=== PATIENT | male | born 1965 | race Caucasian/White ===

== ENCOUNTER 2020-11-13 10:51 | Inpatient (IN) ==
[2020-11-13] MEDS ORDERED: SODIUM CHLORIDE 0.9% 1,000 ML IV STA (11:13)
[2020-11-13] MEDS ORDERED: ONDANSETRON 4 MG/2 ML VIAL IV STA (11:13)
[2020-11-13] MEDS ORDERED: HYDROmorphone 2 MG/1 ML VIAL IV STA (11:13)
[2020-11-13 12:13] LABS: Basophils # 0.1 10*3/uL (0.0-0.2); Basophils % 0.3 % (0.0-0.8); Eosinophils # 0.4 10*3/uL (0.0-0.87); Eosinophils % 2.3 % (0.00-10.9); Hematocrit 51.2 VOL% (42.0-52.0); Immature Granulocytes % 0.6 %; Lymphocytes # 2.1 10*3/uL (1.4-4.0); Lymphocytes % 11.3 % (21.2-54.2); Mean Corpuscular HGB Conc 33.2 GM/DL (32-36); Mean Corpuscular Volume 80.4 FL (87-102); Monocytes % 13.1 % (1.7-12.7); Neutrophils % 72.4 % (38.7-73.9); Platelet Count 288 T/CUMM (130-400); Red Blood Count 6.37 MC/CUMM (3.8-5.5); White Blood Count 18.2 T/CUMM (4-12)
[2020-11-13] MEDS ORDERED: PIPERACILLIN/TAZOBACTAM 3,375 MG in SODIUM CHLORIDE 0.9% 100 ML IV STA (12:27)
[2020-11-13 12:31] LABS: Calcium 9.1 MG/DL (8.5-10.1); Osmolality,Calculated 276.5 MOS/KG (273-304)
[2020-11-13] MEDS ORDERED: ALBUTEROL 2.5 MG/3 ML NEB RESP TX PRN (13:18)
[2020-11-13] MEDS ORDERED: MAGNESIUM SULF RIDER 2 GM in PREMIX 1 EACH IV PRN (13:18)
[2020-11-13] MEDS ORDERED: GLUCAGON 1 MG VIAL IM PRN (13:18)
[2020-11-13] MEDS ORDERED: MAGNESIUM SULF RIDER 4 GM in PREMIX 1 EACH IV PRN (13:18)
[2020-11-13] MEDS ORDERED: DEXTROSE 50% 25 GM/50 ML VIAL IV PRN (13:18)
[2020-11-13 13:50] LABS: Bilirubin,Urine Negative (Negative); Blood, Urine Negative (Negative); Glucose,Urine (UA) Negative (Negative); Ketones,Urine 5 mg/dL (Negative); Mucus,Urine Occasional /LPF (Occasional); Nitrite,Urine Negative (Negative); Protein,Urine Negative; RBC,Urine 2 /HPF (0-4); Urine Appearance CLEAR (Clear); Urine Color Yellow (Yellow); Urine Specific Gravity 1.009 (1.001-1.035); Urine Urobilinogen < 2.0 EU/DL (0.2-1.0); WBC,Urine 1 /HPF (0-6)
[2020-11-13] MEDS ORDERED: ENOXAPARIN 30 MG/0.3 ML SYRINGE SUBCUT SCH (14:00)
[2020-11-13] MEDS: DEXTROSE 5% NACL 0.9% 1,000 ML IV SCH ×2 (15:36→23:42)
[2020-11-13] MEDS: HYDROmorphone 2 MG/1 ML VIAL IV PRN ×2 (15:37→20:16)
[2020-11-13] MEDS: PANTOPRAZOLE 40 MG VIAL IV SCH (16:05)
[2020-11-13] MEDS: ZALEPLON 5 MG CAPSULE PO PRN (20:15)
[2020-11-13] MEDS: BUDESONIDE/FORMOTEROL 160-4.5 INHALER 6 GM INH SCH (20:15)
[2020-11-13] MEDS: AMPICILLIN/SULBACTAM 3,000 MG in SODIUM CHLORIDE 0.9% 100 ML IV SCH (23:42)
[2020-11-14] MEDS: HYDROmorphone 2 MG/1 ML VIAL IV PRN ×4 (00:44→16:44)
[2020-11-14] MEDS: DEXTROSE 5% NACL 0.9% 1,000 ML IV SCH ×2 (01:08→10:02)
[2020-11-14 05:36] LABS: Basophils % 0.2 % (0.0-0.8); Eosinophils # 0.4 10*3/uL (0.0-0.87); Eosinophils % 3.4 % (0.00-10.9); Hemoglobin 14.4 GM/DL (14.0-18.0); Immature Granulocytes % 0.5 %; Immature Granulocytes Absolute 0.07 #; Lymphocytes % 7.8 % (21.2-54.2); Mean Corpuscular HGB Conc 32.7 GM/DL (32-36); Mean Corpuscular Volume 83.8 FL (87-102); Monocytes % 11.1 % (1.7-12.7); Platelet Count 203 T/CUMM (130-400); Red Blood Count 5.25 MC/CUMM (3.8-5.5); Red Cell Distribution Width 17.3 % (9.3-17.3); White Blood Count 12.8 T/CUMM (4-12)
[2020-11-14 06:04] LABS: Calcium 7.7 MG/DL (8.5-10.1)
[2020-11-14] MEDS ORDERED: ACETAMINOPHEN 325 MG TABLET PO PRN (07:49)
[2020-11-14] MEDS: PANTOPRAZOLE 40 MG VIAL IV SCH (08:14)
[2020-11-14] MEDS: AMPICILLIN/SULBACTAM 3,000 MG in SODIUM CHLORIDE 0.9% 100 ML IV SCH (08:22)
[2020-11-14] MEDS: BUDESONIDE/FORMOTEROL 160-4.5 INHALER 6 GM INH SCH ×2 (10:03→20:42)
[2020-11-14] MEDS: PIPERACILLIN/TAZOBACTAM 3,375 MG in SODIUM CHLORIDE 0.9% 100 ML IV SCH ×2 (10:51→17:37)
[2020-11-14] MEDS: ONDANSETRON 4 MG/2 ML VIAL IV PRN (16:45)
[2020-11-14] MEDS: ENOXAPARIN 40 MG/0.4 ML SYRINGE SUBCUT SCH (17:37)
[2020-11-14] MEDS: ZALEPLON 5 MG CAPSULE PO PRN (20:41)
[2020-11-14] MEDS: ALPRAZolam 0.5 MG TABLET PO PRN (20:41)
[2020-11-15] MEDS: DEXTROSE 5% NACL 0.9% 1,000 ML IV SCH ×4 (01:47→18:40)
[2020-11-15] MEDS: PIPERACILLIN/TAZOBACTAM 3,375 MG in SODIUM CHLORIDE 0.9% 100 ML IV SCH ×3 (01:47→22:03)
[2020-11-15 05:16] LABS: Basophils % 0.3 % (0.0-0.8); Eosinophils # 0.6 10*3/uL (0.0-0.87); Eosinophils % 5.8 % (0.00-10.9); Hematocrit 45.1 VOL% (42.0-52.0); Hemoglobin 14.2 GM/DL (14.0-18.0); Immature Granulocytes % 0.5 %; Immature Granulocytes Absolute 0.05 #; Lymphocytes # 1.1 10*3/uL (1.4-4.0); Lymphocytes % 11.4 % (21.2-54.2); Mean Corpuscular HGB Conc 31.5 GM/DL (32-36); Mean Corpuscular Volume 84.8 FL (87-102); Mean Platelet Volume 9.9 FL (9.6-12.0); Monocytes % 10.8 % (1.7-12.7); Neutrophils % 71.2 % (38.7-73.9); Platelet Count 209 T/CUMM (130-400); Red Blood Count 5.32 MC/CUMM (3.8-5.5); White Blood Count 9.5 T/CUMM (4-12)
[2020-11-15 05:48] LABS: Albumin 2.4 G/DL (3.4-5.0); Bilirubin,Direct 0.34 MG/DL (0.0-0.20); Bilirubin,Indirect 1.1 MG/DL (0.0-1.0); Bilirubin,Total 1.4 MG/DL (0.2-1.0); Calcium 8.2 MG/DL (8.5-10.1); Osmolality,Calculated 273.5 MOS/KG (273-304); Potassium 3.6 MMOL/L (3.5-5.1); Total Protein 5.8 G/DL (5.0-7.5)
[2020-11-15] MEDS: ONDANSETRON 4 MG/2 ML VIAL IV PRN (06:09)
[2020-11-15] MEDS: PANTOPRAZOLE 40 MG VIAL IV SCH (08:22)
[2020-11-15] MEDS: PROMETHAZINE 25 MG TABLET PO PRN ×3 (08:22→21:45)
[2020-11-15] MEDS: BUDESONIDE/FORMOTEROL 160-4.5 INHALER 6 GM INH SCH ×2 (08:23→21:45)
[2020-11-15] MEDS ORDERED: LACTULOSE 20 GM/30 ML UDCUP PO PRN (10:06)
[2020-11-15] MEDS: ENOXAPARIN 40 MG/0.4 ML SYRINGE SUBCUT SCH (18:52)
[2020-11-15] MEDS: HYDROmorphone 2 MG/1 ML VIAL IV PRN (23:07)
[2020-11-16] MEDS: ALPRAZolam 0.5 MG TABLET PO PRN ×2 (01:09→21:14)
[2020-11-16] MEDS: PIPERACILLIN/TAZOBACTAM 3,375 MG in SODIUM CHLORIDE 0.9% 100 ML IV SCH ×3 (06:26→21:15)
[2020-11-16] MEDS: PANTOPRAZOLE 40 MG VIAL IV SCH (08:39)
[2020-11-16] MEDS: BUDESONIDE/FORMOTEROL 160-4.5 INHALER 6 GM INH SCH ×2 (13:35→21:16)
[2020-11-16] MEDS: PROMETHAZINE 25 MG TABLET PO PRN (14:32)
[2020-11-16] MEDS: DEXTROSE 5% NACL 0.9% 1,000 ML IV SCH (17:18)
[2020-11-16] MEDS: ENOXAPARIN 40 MG/0.4 ML SYRINGE SUBCUT SCH (17:19)
[2020-11-16] MEDS: ZALEPLON 5 MG CAPSULE PO PRN (21:14)
[2020-11-17] MEDS: DEXTROSE 5% NACL 0.9% 1,000 ML IV SCH ×2 (03:57→04:58)
[2020-11-17] MEDS: PIPERACILLIN/TAZOBACTAM 3,375 MG in SODIUM CHLORIDE 0.9% 100 ML IV SCH (05:01)
[2020-11-17 07:02] VITALS: BP 136/86
[2020-11-17 07:40] LABS: Basophils % 0.3 % (0.0-0.8); Eosinophils # 0.5 10*3/uL (0.0-0.87); Eosinophils % 5.6 % (0.00-10.9); Hematocrit 44.8 VOL% (42.0-52.0); Hemoglobin 14.8 GM/DL (14.0-18.0); Immature Granulocytes % 0.4 %; Immature Granulocytes Absolute 0.04 #; Lymphocytes # 1.5 10*3/uL (1.4-4.0); Lymphocytes % 15.8 % (21.2-54.2); Mean Corpuscular Volume 83.1 FL (87-102); Mean Platelet Volume 9.5 FL (9.6-12.0); Monocytes % 13.1 % (1.7-12.7); Neutrophils % 64.8 % (38.7-73.9); Platelet Count 251 T/CUMM (130-400); Red Blood Count 5.39 MC/CUMM (3.8-5.5); Red Cell Distribution Width 16.5 % (9.3-17.3); White Blood Count 9.3 T/CUMM (4-12)
[2020-11-17] MEDS: PANTOPRAZOLE 40 MG VIAL IV SCH (08:39)
[2020-11-17] MEDS: BUDESONIDE/FORMOTEROL 160-4.5 INHALER 6 GM INH SCH (09:50)
== END 2020-11-17 10:10 | disposition home or self-care (01) | DRG 392 ==
LOC: N.ED 10:51 → N.EDINP 13:18 → N.3E 15:12
PROVIDERS: ADMIT Internal Medicine; ATTEND Internal Medicine

== ENCOUNTER 2022-05-22 09:17 | Inpatient (IN) ==
[2022-05-22] MEDS ORDERED: ALBUTEROL/IPRATROPIUM 3 ML NEB RESP TX STA (09:57)
[2022-05-22] MEDS ORDERED: methylPREDNISolone SOD SUC 125 MG/2 ML VIAL IV STA (09:57)
[2022-05-22] MEDS ORDERED: ALBUTEROL/IPRATROPIUM 3 ML NEB RESP TX ONE (09:57)
[2022-05-22] MEDS ORDERED: ONDANSETRON 4 MG/2 ML VIAL ONE (10:02)
[2022-05-22] MEDS ORDERED: cefTRIAXone 1,000 MG VIAL ONE (10:09)
[2022-05-22] MEDS ORDERED: ALBUTEROL NEB SOLN 5 MG/ML 20 ML/BOTTLE CONT NEB STA (10:16)
[2022-05-22 10:19] LABS: Basophils # 0.1 10*3/uL (0.0-0.2); Basophils % 0.4 % (0.0-0.8); Eosinophils # 0.7 10*3/uL (0.0-0.87); Eosinophils % 3.8 % (0.00-10.9); Hematocrit 50.4 VOL% (42.0-52.0); Hemoglobin 16.9 GM/DL (14.0-18.0); Immature Granulocytes % 3.2 %; Lymphocytes # 1.4 10*3/uL (1.4-4.0); Lymphocytes % 7.5 % (21.2-54.2); Mean Corpuscular HGB Conc 33.5 GM/DL (32-36); Mean Corpuscular Volume 81.8 FL (87-102); Mean Platelet Volume 9.1 FL (9.6-12.0); Monocytes # 1.8 10*3/uL (0.11-0.8); Monocytes % 9.2 % (1.7-12.7); Neutrophils % 75.9 % (38.7-73.9); Platelet Count 218 T/CUMM (130-400); Red Blood Count 6.16 MC/CUMM (3.8-5.5); Red Cell Distribution Width 13.8 % (9.3-17.3)
[2022-05-22] MEDS ORDERED: ONDANSETRON 4 MG/2 ML VIAL IV STA (10:33)
[2022-05-22 10:35] LABS: Albumin 2.4 G/DL (3.4-5.0); Osmolality,Calculated 276.7 MOS/KG (273-304); Potassium 4.8 MMOL/L (3.5-5.1); Total Protein 6.3 G/DL (6.4-8.2)
[2022-05-22] MEDS ORDERED: cefTRIAXone 1,000 MG in SODIUM CHLORIDE 0.9% 100 ML IV STA (10:37)
[2022-05-22 10:40] LABS: Band Neutrophils 1 % (0-10); Eosinophils 6 % (0-10); Lymphocytes 4 % (20-55); Platelet Estimate Adequate; Total Cells Counted 100
[2022-05-22] MEDS ORDERED: hydrALAZINE 20 MG/1 ML VIAL IV PRN (10:44)
[2022-05-22] MEDS ORDERED: GLUCAGON 1 MG VIAL IM PRN (10:44)
[2022-05-22] MEDS ORDERED: ACETAMINOPHEN 325 MG TABLET PO PRN (10:44)
[2022-05-22] MEDS ORDERED: DOCUSATE SODIUM 100 MG CAPSULE PO PRN (10:44)
[2022-05-22] MEDS ORDERED: DEXTROSE 10% 250 ML BAG IV PRN (10:44)
[2022-05-22] MEDS ORDERED: ONDANSETRON 4 MG/2 ML VIAL IV PRN (10:44)
[2022-05-22] MEDS ORDERED: AZITHROMYCIN INJ 500 MG in SODIUM CHLORIDE 0.9% 250 ML IV STA (10:44)
[2022-05-22] MEDS ORDERED: ENOXAPARIN 40 MG/0.4 ML SYRINGE SUBCUT SCH (11:00)
[2022-05-22] MEDS ORDERED: cefTRIAXone 1,000 MG in SODIUM CHLORIDE 0.9% 100 ML IV SCH (11:00)
[2022-05-22] MEDS ORDERED: HYDROcodone/HOMATROPINE 5 ML UDCUP PO PRN (11:09)
[2022-05-22] MEDS ORDERED: IBUPROFEN 800 MG TABLET PO PRN (11:09)
[2022-05-22] MEDS ORDERED: CETIRIZINE 10 MG TABLET PO PRN (11:09)
[2022-05-22] MEDS ORDERED: ZALEPLON 5 MG CAPSULE PO PRN (12:05)
[2022-05-22] MEDS ORDERED: ENOXAPARIN 40 MG/0.4 ML SYRINGE SUBCUT ONE ×2 (13:00→14:55)
[2022-05-22] MEDS ORDERED: ALBUTEROL/IPRATROPIUM 3 ML NEB RESP TX SCH (13:00)
[2022-05-22] MEDS ORDERED: MORPHINE 2 MG/1 ML SYRINGE ONE (13:48)
[2022-05-22] MEDS: methylPREDNISolone SOD SUC 40 MG/1 ML VIAL IV SCH ×2 (14:00→20:22)
[2022-05-22] MEDS: INSULIN LISPRO 100 UNIT/ML SUBCUT SCH ×3 (14:03→20:23)
[2022-05-22] MEDS: ALBUTEROL/IPRATROPIUM 3 ML NEB RESP TX SCH ×3 (14:04→19:37)
[2022-05-22 14:06] VITALS: BP 151/99
[2022-05-22] MEDS: MORPHINE 2 MG/1 ML SYRINGE IV PRN ×3 (14:32→21:29)
[2022-05-22] MEDS: ALPRAZolam 0.5 MG TABLET PO PRN (14:58)
[2022-05-22] MEDS: APIXABAN 5 MG TABLET PO SCH ×2 (14:58→20:24)
[2022-05-22] MEDS: BUDESONIDE/FORMOTEROL 160-4.5 INHALER 6 GM INH SCH ×2 (16:41→20:24)
[2022-05-22] MEDS: MEROPENEM 500 MG in SODIUM CHLORIDE 0.9% 100 ML IV SCH ×2 (16:42→21:28)
[2022-05-22] MEDS ORDERED: ENOXAPARIN 80 MG/0.8 ML SYRINGE SUBCUT SCH (21:00)
[2022-05-23] MEDS: MORPHINE 2 MG/1 ML SYRINGE IV PRN ×2 (00:34→07:53)
[2022-05-23] MEDS: ALBUTEROL/IPRATROPIUM 3 ML NEB RESP TX SCH ×5 (00:41→14:03)
[2022-05-23] MEDS: methylPREDNISolone SOD SUC 40 MG/1 ML VIAL IV SCH ×2 (03:53→12:38)
[2022-05-23] MEDS: MEROPENEM 500 MG in SODIUM CHLORIDE 0.9% 100 ML IV SCH ×2 (03:54→09:54)
[2022-05-23 05:34] LABS: Basophils % 0.2 % (0.0-0.8); Eosinophils % 0.1 % (0.00-10.9); Hematocrit 45.7 VOL% (42.0-52.0); Hemoglobin 14.9 GM/DL (14.0-18.0); Immature Granulocytes % 2.2 %; Immature Granulocytes Absolute 0.42 #; Lymphocytes # 0.6 10*3/uL (1.4-4.0); Mean Corpuscular HGB Conc 32.6 GM/DL (32-36); Mean Corpuscular Volume 83.4 FL (87-102); Mean Platelet Volume 9.5 FL (9.6-12.0); Monocytes # 0.6 10*3/uL (0.11-0.8); Monocytes % 3.2 % (1.7-12.7); Neutrophils % 91.3 % (38.7-73.9); Platelet Count 225 T/CUMM (130-400); Red Blood Count 5.48 MC/CUMM (3.8-5.5); Red Cell Distribution Width 13.7 % (9.3-17.3); White Blood Count 18.9 T/CUMM (4-12)
[2022-05-23 05:52] LABS: Calcium 8.4 MG/DL (8.5-10.1); Osmolality,Calculated 285.7 MOS/KG (273-304); Potassium 4.1 MMOL/L (3.5-5.1)
[2022-05-23 06:00] LABS: Band Neutrophils 2 % (0-10); Lymphocytes 5 % (20-55); Microcytosis Slight; Total Cells Counted 100
[2022-05-23 06:01] LABS: Platelet Estimate Normal
[2022-05-23] MEDS: INSULIN LISPRO 100 UNIT/ML SUBCUT SCH ×2 (07:50→12:37)
[2022-05-23] MEDS: ALPRAZolam 0.5 MG TABLET PO PRN (07:53)
[2022-05-23] MEDS: APIXABAN 5 MG TABLET PO SCH (08:01)
[2022-05-23] MEDS: BUDESONIDE/FORMOTEROL 160-4.5 INHALER 6 GM INH SCH (08:01)
[2022-05-23] MEDS ORDERED: PANTOPRAZOLE 40 MG TABLET PO SCH (09:00)
[2022-05-23] MEDS ORDERED: cefTRIAXone 1,000 MG in SODIUM CHLORIDE 0.9% 100 ML IV SCH (09:00)
[2022-05-23] MEDS ORDERED: AZITHROMYCIN INJ 500 MG in SODIUM CHLORIDE 0.9% 250 ML IV SCH (11:00)
== END 2022-05-23 15:00 | disposition home or self-care (01) | DRG 175 ==
LOC: N.ED 09:17 → N.5E 12:02 → SUATTDRO 12:02 → N.CC 13:15
PROVIDERS: ADMIT Internal Medicine; ATTEND Internal Medicine

== ENCOUNTER 2022-05-24 12:13 | Inpatient (IN) ==
[2022-05-24] MEDS ORDERED: methylPREDNISolone SOD SUC 125 MG/2 ML VIAL IV STA (12:37)
[2022-05-24 12:45] LABS: Basophils # 0.1 10*3/uL (0.0-0.2); Basophils % 0.2 % (0.0-0.8); Eosinophils # 0.1 10*3/uL (0.0-0.87); Eosinophils % 0.4 % (0.00-10.9); Hematocrit 49.2 VOL% (42.0-52.0); Hemoglobin 16.4 GM/DL (14.0-18.0); Immature Granulocytes % 2.2 %; Immature Granulocytes Absolute 0.57 #; Lymphocytes # 1.6 10*3/uL (1.4-4.0); Lymphocytes % 6.2 % (21.2-54.2); Mean Corpuscular HGB Conc 33.3 GM/DL (32-36); Mean Corpuscular Volume 81.7 FL (87-102); Monocytes # 2.4 10*3/uL (0.11-0.8); Monocytes % 9.3 % (1.7-12.7); Neutrophils % 81.7 % (38.7-73.9); Platelet Count 320 T/CUMM (130-400); Red Blood Count 6.02 MC/CUMM (3.8-5.5); Red Cell Distribution Width 14.4 % (9.3-17.3); White Blood Count 25.5 T/CUMM (4-12)
[2022-05-24] MEDS ORDERED: ALBUTEROL NEB SOLN 5 MG/ML 20 ML/BOTTLE CONT NEB SCH (13:00)
[2022-05-24 13:06] LABS: Albumin 2.6 G/DL (3.4-5.0); Bilirubin,Total 0.5 MG/DL (0.20-1.00); Calcium 8.9 MG/DL (8.5-10.1); Osmolality,Calculated 286.3 MOS/KG (273-304); Potassium 4.2 MMOL/L (3.5-5.1); Total Protein 6.6 G/DL (6.4-8.2)
[2022-05-24 13:16] LABS: Lymphocytes 7 % (20-55); Total Cells Counted 100
[2022-05-24] MEDS ORDERED: ONDANSETRON 4 MG/2 ML VIAL ONE ×2 (13:19→19:46)
[2022-05-24 13:22] LABS: Arterial Base Excess iSTAT 4 MMOL/L (-2.5-2.5); Arterial Bicarbonate iSTAT 23.9 MMOL/L (20-26); Arterial O2 Saturation iSTAT 99 % (95-100); Arterial PCO2 iSTAT 25 MM HG (35-48); Arterial PO2 iSTAT 97 MM HG (80-95); Arterial Total CO2 iSTAT 25 MMO/L (23-27); Arterial pH iSTAT 7.596 (7.35-7.45)
[2022-05-24 13:24] LABS: Hypochromia Slight
[2022-05-24] MEDS ORDERED: ONDANSETRON 4 MG/2 ML VIAL IV STA (13:24)
[2022-05-24 13:26] LABS: Platelet Estimate Normal
[2022-05-24] MEDS ORDERED: MEROPENEM 500 MG in SODIUM CHLORIDE 0.9% 100 ML IV ONE (14:07)
[2022-05-24] MEDS ORDERED: HYDROcodone/HOMATROPINE 5 ML UDCUP PO PRN (14:23)
[2022-05-24] MEDS ORDERED: CETIRIZINE 10 MG TABLET PO PRN (14:23)
[2022-05-24] MEDS ORDERED: ALBUTEROL 2.5 MG/3 ML NEB RESP TX PRN (14:35)
[2022-05-24] MEDS ORDERED: methylPREDNISolone SOD SUC 40 MG/1 ML VIAL ONE (15:07)
[2022-05-24] MEDS: FAMOTIDINE 20 MG/2 ML VIAL IV SCH (15:10)
[2022-05-24] MEDS: ALBUTEROL/IPRATROPIUM 3 ML NEB RESP TX SCH ×3 (15:12→23:28)
[2022-05-24] MEDS: IBUPROFEN 400 MG TABLET PO SCH ×2 (15:15→21:11)
[2022-05-24] MEDS: oxyCODONE/ACETAMINOPHEN 5-325 MG TABLET PO PRN ×2 (15:15→21:12)
[2022-05-24] MEDS: ALPRAZolam 0.5 MG TABLET PO PRN ×2 (15:23→21:11)
[2022-05-24] MEDS: SODIUM CHLORIDE 0.9% 1,000 ML IV SCH ×2 (17:10→22:16)
[2022-05-24] MEDS: BUDESONIDE/FORMOTEROL 160-4.5 INHALER 6 GM INH SCH ×2 (18:32→21:14)
[2022-05-24] MEDS: MORPHINE 2 MG/1 ML SYRINGE IV PRN (19:05)
[2022-05-24] MEDS ORDERED: KETOROLAC 30 MG/1 ML VIAL IV ONE (19:11)
[2022-05-24] MEDS ORDERED: TERBUTALINE 1 MG/1 ML VIAL SUBCUT ONE (19:14)
[2022-05-24] MEDS ORDERED: LORazepam 2 MG/1 ML VIAL IV ONE ×2 (19:31→19:46)
[2022-05-24] MEDS ORDERED: ONDANSETRON 4 MG/2 ML VIAL IV ONE (19:47)
[2022-05-24] MEDS ORDERED: methylPREDNISolone SOD SUC 40 MG/1 ML VIAL IV SCH (20:00)
[2022-05-24] MEDS ORDERED: LORazepam 2 MG/1 ML VIAL IV PRN (20:20)
[2022-05-24] MEDS ORDERED: HYDROmorphone 1 MG/1 ML SYRINGE IV PRN (20:20)
[2022-05-24] MEDS ORDERED: SODIUM CHLORIDE 0.9% 500 ML IV ONE (20:23)
[2022-05-24] MEDS: MEROPENEM 500 MG in SODIUM CHLORIDE 0.9% 100 ML IV SCH (20:48)
[2022-05-24 20:56] LABS: Arterial Base Excess iSTAT -7 MMOL/L (-2.5-2.5); Arterial Bicarbonate iSTAT 18.2 MMOL/L (20-26); Arterial O2 Saturation iSTAT 99 % (95-100); Arterial PCO2 iSTAT 35 MM HG (35-48); Arterial PO2 iSTAT 131 MM HG (80-95); Arterial Total CO2 iSTAT 19 MMO/L (23-27); Arterial pH iSTAT 7.325 (7.35-7.45)
[2022-05-24] MEDS: APIXABAN 5 MG TABLET PO SCH (21:11)
[2022-05-25 00:59] LABS: Alanine Aminotransferase 25 U/L (16-61); Alkaline Phosphatase 60 U/L (45-117); Aspartate Amino Transferase 8 U/L (0-37); Bilirubin,Total < 0.39 MG/DL (0.20-1.00); Blood Urea Nitrogen 25 MG/DL (7-18); Calcium 7.9 MG/DL (8.5-10.1); Carbon Dioxide 24 MMOL/L (21-32); Chloride 109 MMOL/L (98-107); Glucose 282 MG/DL (74-106); Osmolality,Calculated 292.4 MOS/KG (273-304); Potassium 4.7 MMOL/L (3.5-5.1); Sodium 140 MMOL/L (136-145)
[2022-05-25] MEDS: FAMOTIDINE 20 MG/2 ML VIAL IV SCH ×2 (02:03→16:30)
[2022-05-25] MEDS: methylPREDNISolone SOD SUC 40 MG/1 ML VIAL IV SCH ×2 (02:03→06:22)
[2022-05-25] MEDS: MEROPENEM 500 MG in SODIUM CHLORIDE 0.9% 100 ML IV SCH ×4 (02:06→20:18)
[2022-05-25] MEDS: IBUPROFEN 400 MG TABLET PO SCH ×2 (02:49→17:37)
[2022-05-25] MEDS: oxyCODONE/ACETAMINOPHEN 5-325 MG TABLET PO PRN (02:49)
[2022-05-25] MEDS: ALBUTEROL/IPRATROPIUM 3 ML NEB RESP TX SCH ×4 (03:28→15:46)
[2022-05-25 04:02] LABS: Basophils % 0.1 % (0.0-0.8); Hematocrit 41.8 VOL% (42.0-52.0); Immature Granulocytes Absolute 0.26 #; Lymphocytes # 0.4 10*3/uL (1.4-4.0); Lymphocytes % 3.4 % (21.2-54.2); Mean Corpuscular HGB Conc 32.1 GM/DL (32-36); Mean Corpuscular Volume 84.8 FL (87-102); Mean Platelet Volume 9.3 FL (9.6-12.0); Monocytes # 0.4 10*3/uL (0.11-0.8); Monocytes % 3.4 % (1.7-12.7); Neutrophils % 91.1 % (38.7-73.9); Red Blood Count 4.93 MC/CUMM (3.8-5.5); Red Cell Distribution Width 14.6 % (9.3-17.3); White Blood Count 13.1 T/CUMM (4-12)
[2022-05-25 04:04] LABS: Hemoglobin 13.4 GM/DL (14.0-18.0); Platelet Count 235 T/CUMM (130-400)
[2022-05-25 04:04] LABS: Arterial Base Excess iSTAT 0 MMOL/L (-2.5-2.5); Arterial Bicarbonate iSTAT 23.3 MMOL/L (20-26); Arterial O2 Saturation iSTAT 99 % (95-100); Arterial PCO2 iSTAT 32 MM HG (35-48); Arterial PO2 iSTAT 147 MM HG (80-95); Arterial Total CO2 iSTAT 24 MMO/L (23-27); Arterial pH iSTAT 7.465 (7.35-7.45)
[2022-05-25 04:26] LABS: Lymphocytes 4 % (20-55); Platelet Estimate Adequate; Total Cells Counted 100
[2022-05-25] MEDS: SODIUM CHLORIDE 0.9% 1,000 ML IV SCH (06:22)
[2022-05-25] MEDS ORDERED: KETOROLAC 30 MG/1 ML VIAL IV ONE (06:25)
[2022-05-25] MEDS: MORPHINE 2 MG/1 ML SYRINGE IV PRN ×2 (06:28→11:45)
[2022-05-25] MEDS ORDERED: TERBUTALINE 1 MG/1 ML VIAL SUBCUT ONE (06:52)
[2022-05-25] MEDS ORDERED: methylPREDNISolone SOD SUC 40 MG/1 ML VIAL IV SCH (09:00)
[2022-05-25] MEDS: AMINOPHYLLINE 500 MG in SODIUM CHLORIDE 0.9% 480 ML IV SCH ×2 (09:30→17:45)
[2022-05-25] MEDS: methylPREDNISolone SOD SUC 125 MG/2 ML VIAL IV SCH ×3 (09:30→20:18)
[2022-05-25] MEDS: APIXABAN 5 MG TABLET PO SCH ×2 (11:10→20:18)
[2022-05-25] MEDS ORDERED: KETOROLAC 10 MG TABLET PO PRN (11:24)
[2022-05-25] MEDS ORDERED: PROMETHAZINE 25 MG TABLET PO PRN (11:24)
[2022-05-25] MEDS ORDERED: METOPROLOL TARTRATE 5 MG/5 ML VIAL IV ONE ×2 (11:45→11:48)
[2022-05-25] MEDS ORDERED: RACEPINEPHRINE 0.5 ML NEB RESP TX STA (11:49)
[2022-05-25] MEDS ORDERED: ETOMIDATE 20 MG/10 ML VIAL IV ONE ×4 (12:01→12:08)
[2022-05-25] MEDS ORDERED: SUCCINYLCHOLINE 200 MG/10 ML VIAL ONE (12:02)
[2022-05-25] MEDS ORDERED: SUCCINYLCHOLINE 200 MG/10 ML VIAL IV ONE (12:08)
[2022-05-25] MEDS ORDERED: HEPARIN/NACL 0.9% 2 UNITS/ML 1,000 UNIT/500 ML BAG IV ONE (12:11)
[2022-05-25] MEDS ORDERED: MIDAZOLAM 2 MG/2 ML VIAL ONE (12:22)
[2022-05-25] MEDS ORDERED: MIDAZOLAM 2 MG/2 ML VIAL IV ONE ×2 (12:26→16:56)
[2022-05-25] MEDS: MIDAZOLAM 100 MG in SODIUM CHLORIDE 0.9% 80 ML IV PRN ×2 (12:50→21:33)
[2022-05-25] MEDS: fentaNYL INJ 1,250 MCG in SODIUM CHLORIDE 0.9% 225 ML IV PRN ×2 (12:50→21:32)
[2022-05-25 13:59] LABS: ABG Base Excess 0.4 MMOL/L (-2.5-2.5); ABG HCO3 24.8 MMOL/L (20-26); ABG Oxygen Saturation 99.7 % (95-100); ABG PCO2 37.1 MM HG (35-48); ABG PH 7.427 (7.35-7.45); ABG TCO2 21.3 MMOL/L (23-27)
[2022-05-25] MEDS: LEVALBUTEROL 1.25 MG/3 ML NEB RESP TX SCH ×3 (15:46→22:40)
[2022-05-25] MEDS: BUDESONIDE/FORMOTEROL 160-4.5 INHALER 6 GM INH SCH ×2 (17:29→20:19)
[2022-05-25 19:24] LABS: Mucus,Urine Occasional /LPF (Occasional); RBC,Urine 6 /HPF (0-4); Squamous Epithelial Cell,Urine Occasional /HPF (0-10); Urine Appearance Clear (Clear); Urine Color Yellow (Yellow)
[2022-05-25 19:25] LABS: Bilirubin,Urine Negative (Negative); Blood, Urine Negative (Negative); Glucose,Urine (UA) 250 mg/dL (Negative); Ketones,Urine Negative (Negative); Nitrite,Urine Negative (Negative); Protein,Urine 30 mg/dL (Negative); Urine Specific Gravity > 1.030 (1.001-1.035); Urine Urobilinogen 0.2 eU/dL (<2.0)
[2022-05-26] MEDS: AMINOPHYLLINE 500 MG in SODIUM CHLORIDE 0.9% 480 ML IV SCH ×7 (00:30→23:34)
[2022-05-26] MEDS ORDERED: NOREPINEPHRINE 8 MG in SODIUM CHLORIDE 0.9% 242 ML IV PRN (01:55)
[2022-05-26] MEDS ORDERED: NOREPINEPHRINE 4 MG/4 ML VIAL IV ONE (01:58)
[2022-05-26] MEDS: FAMOTIDINE 20 MG/2 ML VIAL IV SCH ×2 (02:32→15:44)
[2022-05-26] MEDS: methylPREDNISolone SOD SUC 125 MG/2 ML VIAL IV SCH ×4 (02:33→20:08)
[2022-05-26] MEDS: MEROPENEM 500 MG in SODIUM CHLORIDE 0.9% 100 ML IV SCH ×4 (02:35→19:37)
[2022-05-26] MEDS: LEVALBUTEROL 1.25 MG/3 ML NEB RESP TX SCH ×6 (03:35→23:10)
[2022-05-26 04:04] LABS: ABG Base Excess -2.2 MMOL/L (-2.5-2.5); ABG HCO3 22.6 MMOL/L (20-26); ABG Oxygen Saturation 99.1 % (95-100); ABG PH 7.367 (7.35-7.45)
[2022-05-26 04:08] LABS: Basophils % 0.1 % (0.0-0.8); Hematocrit 42.2 VOL% (42.0-52.0); Hemoglobin 13.1 GM/DL (14.0-18.0); Immature Granulocytes % 2.2 %; Immature Granulocytes Absolute 0.57 #; Lymphocytes # 0.4 10*3/uL (1.4-4.0); Lymphocytes % 1.7 % (21.2-54.2); Mean Corpuscular Volume 86.7 FL (87-102); Mean Platelet Volume 9.4 FL (9.6-12.0); Monocytes # 1.6 10*3/uL (0.11-0.8); Platelet Count 309 T/CUMM (130-400); Red Blood Count 4.87 MC/CUMM (3.8-5.5); Red Cell Distribution Width 14.4 % (9.3-17.3); White Blood Count 25.8 T/CUMM (4-12)
[2022-05-26 04:21] LABS: Calcium 7.8 MG/DL (8.5-10.1); Osmolality,Calculated 298.1 MOS/KG (273-304); Phosphorous 2.4 MG/DL (2.5-4.9)
[2022-05-26] MEDS: fentaNYL INJ 1,250 MCG in SODIUM CHLORIDE 0.9% 225 ML IV PRN ×4 (04:25→21:05)
[2022-05-26 04:30] LABS: Lymphocytes 2 % (20-55); Platelet Estimate Adequate; Total Cells Counted 100
[2022-05-26] MEDS: APIXABAN 5 MG TABLET PO SCH ×2 (08:37→20:08)
[2022-05-26] MEDS: MIDAZOLAM 100 MG in SODIUM CHLORIDE 0.9% 80 ML IV PRN ×2 (09:57→22:36)
[2022-05-26] MEDS: BUDESONIDE/FORMOTEROL 160-4.5 INHALER 6 GM INH SCH ×2 (11:23→20:39)
[2022-05-26] MEDS ORDERED: POTASSIUM PHOSPHATE 30 MMOL in SODIUM CHLORIDE 0.9% 250 ML IV ONE (11:30)
[2022-05-26] MEDS: INSULIN LISPRO 100 UNIT/ML SUBCUT SCH ×3 (12:20→23:56)
[2022-05-27] MEDS: FAMOTIDINE 20 MG/2 ML VIAL IV SCH ×2 (02:33→14:56)
[2022-05-27] MEDS: methylPREDNISolone SOD SUC 125 MG/2 ML VIAL IV SCH ×4 (02:33→20:22)
[2022-05-27] MEDS: MEROPENEM 500 MG in SODIUM CHLORIDE 0.9% 100 ML IV SCH ×2 (02:33→09:02)
[2022-05-27] MEDS: fentaNYL INJ 1,250 MCG in SODIUM CHLORIDE 0.9% 225 ML IV PRN ×4 (02:35→19:25)
[2022-05-27] MEDS: AMINOPHYLLINE 500 MG in SODIUM CHLORIDE 0.9% 480 ML IV SCH ×3 (03:01→12:53)
[2022-05-27] MEDS: LEVALBUTEROL 1.25 MG/3 ML NEB RESP TX SCH ×6 (03:07→23:10)
[2022-05-27 04:19] LABS: Basophils % 0.1 % (0.0-0.8); Hematocrit 39.5 VOL% (42.0-52.0); Hemoglobin 12.4 GM/DL (14.0-18.0); Immature Granulocytes % 2.2 %; Immature Granulocytes Absolute 0.49 #; Lymphocytes # 0.2 10*3/uL (1.4-4.0); Lymphocytes % 1.1 % (21.2-54.2); Mean Corpuscular HGB Conc 31.4 GM/DL (32-36); Mean Corpuscular Volume 87.4 FL (87-102); Mean Platelet Volume 9.5 FL (9.6-12.0); Monocytes # 1.3 10*3/uL (0.11-0.8); Monocytes % 5.7 % (1.7-12.7); Neutrophils % 90.9 % (38.7-73.9); Platelet Count 312 T/CUMM (130-400); Red Blood Count 4.52 MC/CUMM (3.8-5.5); Red Cell Distribution Width 14.3 % (9.3-17.3); White Blood Count 22.6 T/CUMM (4-12)
[2022-05-27 04:20] LABS: ABG Base Excess 0.1 MMOL/L (-2.5-2.5); ABG HCO3 24.5 MMOL/L (20-26); ABG Oxygen Saturation 98.3 % (95-100); ABG PCO2 44.6 MM HG (35-48); ABG PH 7.369 (7.35-7.45); ABG TCO2 22.8 MMOL/L (23-27)
[2022-05-27 04:37] LABS: Hypochromia Slight; Lymphocytes 3 % (20-55); Microcytosis Slight; Platelet Estimate Adequate; Total Cells Counted 100
[2022-05-27 04:58] LABS: Phosphorous 2.5 MG/DL (2.5-4.9)
[2022-05-27 05:00] LABS: Alanine Aminotransferase 30 U/L (16-61); Albumin 1.8 G/DL (3.4-5.0); Alkaline Phosphatase 55 U/L (45-117); Aspartate Amino Transferase 6 U/L (0-37); Bilirubin,Total < 0.39 MG/DL (0.20-1.00); Blood Urea Nitrogen 24 MG/DL (7-18); Calcium 7.9 MG/DL (8.5-10.1); Carbon Dioxide 24 MMOL/L (21-32); Chloride 114 MMOL/L (98-107); Glucose 276 MG/DL (74-106); Osmolality,Calculated 296.1 MOS/KG (273-304); Potassium 4.3 MMOL/L (3.5-5.1); Sodium 142 MMOL/L (136-145); Total Protein 4.8 G/DL (6.4-8.2)
[2022-05-27] MEDS: INSULIN LISPRO 100 UNIT/ML SUBCUT SCH ×3 (05:40→17:52)
[2022-05-27] MEDS: INSULIN GLARGINE 100 UNIT/ML SUBCUT SCH (09:13)
[2022-05-27] MEDS: APIXABAN 5 MG TABLET PO SCH ×2 (09:13→20:21)
[2022-05-27] MEDS: cefTRIAXone 1,000 MG in SODIUM CHLORIDE 0.9% 100 ML IV SCH (09:18)
[2022-05-27] MEDS: BUDESONIDE/FORMOTEROL 160-4.5 INHALER 6 GM INH SCH (09:44)
[2022-05-27] MEDS: AZITHROMYCIN INJ 500 MG in SODIUM CHLORIDE 0.9% 250 ML IV SCH (10:54)
[2022-05-27] MEDS: MIDAZOLAM 100 MG in SODIUM CHLORIDE 0.9% 80 ML IV PRN (12:06)
[2022-05-27] MEDS: BUDESONIDE 0.5 MG/2 ML NEB RESP TX SCH (19:10)
[2022-05-28] MEDS: INSULIN LISPRO 100 UNIT/ML SUBCUT SCH ×4 (00:18→17:34)
[2022-05-28] MEDS: AMINOPHYLLINE 500 MG in SODIUM CHLORIDE 0.9% 480 ML IV SCH ×2 (00:55→12:23)
[2022-05-28] MEDS: MIDAZOLAM 100 MG in SODIUM CHLORIDE 0.9% 80 ML IV PRN ×2 (01:15→15:15)
[2022-05-28] MEDS: fentaNYL INJ 1,250 MCG in SODIUM CHLORIDE 0.9% 225 ML IV PRN ×5 (01:44→23:45)
[2022-05-28] MEDS: LEVALBUTEROL 1.25 MG/3 ML NEB RESP TX SCH ×6 (02:33→23:10)
[2022-05-28] MEDS: methylPREDNISolone SOD SUC 125 MG/2 ML VIAL IV SCH ×4 (03:19→20:34)
[2022-05-28] MEDS: FAMOTIDINE 20 MG/2 ML VIAL IV SCH ×2 (03:19→15:41)
[2022-05-28 04:10] LABS: Basophils % 0.2 % (0.0-0.8); Hematocrit 36.1 VOL% (42.0-52.0); Hemoglobin 11.4 GM/DL (14.0-18.0); Immature Granulocytes Absolute 0.26 #; Lymphocytes # 0.3 10*3/uL (1.4-4.0); Mean Corpuscular HGB Conc 31.6 GM/DL (32-36); Mean Platelet Volume 9.4 FL (9.6-12.0); Monocytes # 0.6 10*3/uL (0.11-0.8); Monocytes % 4.6 % (1.7-12.7); Neutrophils % 91.2 % (38.7-73.9); Platelet Count 215 T/CUMM (130-400); Red Blood Count 4.15 MC/CUMM (3.8-5.5); Red Cell Distribution Width 14.4 % (9.3-17.3); White Blood Count 13.1 T/CUMM (4-12)
[2022-05-28 04:28] LABS: Alanine Aminotransferase 24 U/L (16-61); Albumin 1.9 G/DL (3.4-5.0); Alkaline Phosphatase 51 U/L (45-117); Aspartate Amino Transferase 4 U/L (0-37); Bilirubin,Total < 0.39 MG/DL (0.20-1.00); Blood Urea Nitrogen 32 MG/DL (7-18); Calcium 8.3 MG/DL (8.5-10.1); Carbon Dioxide 30 MMOL/L (21-32); Chloride 113 MMOL/L (98-107); Glucose 193 MG/DL (74-106); Osmolality,Calculated 301.6 MOS/KG (273-304); Potassium 4.4 MMOL/L (3.5-5.1); Sodium 146 MMOL/L (136-145); Total Protein 4.5 G/DL (6.4-8.2)
[2022-05-28 04:29] LABS: Lymphocytes 2 % (20-55); Platelet Estimate Adequate; Total Cells Counted 100
[2022-05-28 04:32] LABS: Osmolality,Calculated 299.7 MOS/KG (273-304); Potassium 4.4 MMOL/L (3.5-5.1)
[2022-05-28] MEDS: BUDESONIDE 0.5 MG/2 ML NEB RESP TX SCH ×2 (07:50→19:11)
[2022-05-28] MEDS: INSULIN GLARGINE 100 UNIT/ML SUBCUT SCH (08:59)
[2022-05-28] MEDS: APIXABAN 5 MG TABLET PO SCH ×2 (09:00→20:34)
[2022-05-28] MEDS: cefTRIAXone 1,000 MG in SODIUM CHLORIDE 0.9% 100 ML IV SCH (09:02)
[2022-05-28] MEDS: AZITHROMYCIN INJ 500 MG in SODIUM CHLORIDE 0.9% 250 ML IV SCH (10:01)
[2022-05-28 11:27] LABS: ABG Base Excess 1.1 MMOL/L (-2.5-2.5); ABG HCO3 25.4 MMOL/L (20-26); ABG PCO2 51.8 MM HG (35-48); ABG PH 7.338 (7.35-7.45); ABG TCO2 24.8 MMOL/L (23-27)
[2022-05-29] MEDS: AMINOPHYLLINE 500 MG in SODIUM CHLORIDE 0.9% 480 ML IV SCH ×3 (00:12→23:01)
[2022-05-29] MEDS: INSULIN LISPRO 100 UNIT/ML SUBCUT SCH ×4 (00:49→18:16)
[2022-05-29] MEDS: FAMOTIDINE 20 MG/2 ML VIAL IV SCH ×2 (02:34→14:30)
[2022-05-29] MEDS: methylPREDNISolone SOD SUC 125 MG/2 ML VIAL IV SCH ×4 (02:39→21:18)
[2022-05-29 04:28] LABS: ABG Base Excess 3.2 MMOL/L (-2.5-2.5); ABG HCO3 27.3 MMOL/L (20-26); ABG Oxygen Saturation 97.2 % (95-100); ABG PCO2 52.7 MM HG (35-48); ABG PO2 93.3 MM HG (80-95); ABG TCO2 26.7 MMOL/L (23-27)
[2022-05-29 04:29] LABS: Basophils % 0.1 % (0.0-0.8); Hematocrit 35.9 VOL% (42.0-52.0); Hemoglobin 11.1 GM/DL (14.0-18.0); Immature Granulocytes % 2.7 %; Immature Granulocytes Absolute 0.35 #; Lymphocytes # 0.1 10*3/uL (1.4-4.0); Mean Corpuscular HGB Conc 30.9 GM/DL (32-36); Mean Corpuscular Volume 88.2 FL (87-102); Mean Platelet Volume 9.4 FL (9.6-12.0); Monocytes # 0.7 10*3/uL (0.11-0.8); Monocytes % 5.3 % (1.7-12.7); NRBC # 0.03 10*3/uL; Neutrophils % 90.9 % (38.7-73.9); Platelet Count 216 T/CUMM (130-400); Red Blood Count 4.07 MC/CUMM (3.8-5.5); Red Cell Distribution Width 14.4 % (9.3-17.3)
[2022-05-29 04:46] LABS: Calcium 7.9 MG/DL (8.5-10.1)
[2022-05-29 04:53] LABS: Hypochromia Slight; Lymphocytes 1 % (20-55); Microcytosis Slight; Platelet Estimate Adequate; Total Cells Counted 100
[2022-05-29] MEDS: MIDAZOLAM 100 MG in SODIUM CHLORIDE 0.9% 80 ML IV PRN ×2 (05:05→18:18)
[2022-05-29] MEDS: fentaNYL INJ 1,250 MCG in SODIUM CHLORIDE 0.9% 225 ML IV PRN ×3 (06:03→20:46)
[2022-05-29] MEDS: LEVALBUTEROL 1.25 MG/3 ML NEB RESP TX SCH ×5 (07:11→19:38)
[2022-05-29] MEDS: BUDESONIDE 0.5 MG/2 ML NEB RESP TX SCH ×2 (07:11→19:38)
[2022-05-29] MEDS: cefTRIAXone 1,000 MG in SODIUM CHLORIDE 0.9% 100 ML IV SCH (08:30)
[2022-05-29] MEDS: APIXABAN 5 MG TABLET PO SCH (08:37)
[2022-05-29] MEDS: INSULIN GLARGINE 100 UNIT/ML SUBCUT SCH ×2 (08:38→21:23)
[2022-05-29] MEDS: ALPRAZolam 0.5 MG TABLET PO PRN (08:38)
[2022-05-29] MEDS: AZITHROMYCIN INJ 500 MG in SODIUM CHLORIDE 0.9% 250 ML IV SCH (09:30)
[2022-05-29] MEDS ORDERED: FUROSEMIDE 40 MG/4 ML VIAL ONE (09:59)
[2022-05-29] MEDS ORDERED: FUROSEMIDE 40 MG/4 ML VIAL IV ONE (10:00)
[2022-05-29] MEDS ORDERED: APIXABAN 5 MG TABLET PO ONE (21:00)
[2022-05-29] MEDS ORDERED: APIXABAN 5 MG TABLET PO SCH (21:00)
[2022-05-29] MEDS: ALPRAZolam 0.5 MG TABLET PO SCH (21:24)
[2022-05-30] MEDS: INSULIN LISPRO 100 UNIT/ML SUBCUT SCH ×4 (00:15→17:30)
[2022-05-30] MEDS: ACETAMINOPHEN 325 MG/10.15 ML UDCUP PO PRN (00:21)
[2022-05-30] MEDS: LEVALBUTEROL 1.25 MG/3 ML NEB RESP TX SCH ×7 (00:38→23:36)
[2022-05-30] MEDS: FAMOTIDINE 20 MG/2 ML VIAL IV SCH ×2 (02:10→15:02)
[2022-05-30] MEDS: methylPREDNISolone SOD SUC 125 MG/2 ML VIAL IV SCH ×4 (03:52→20:36)
[2022-05-30 04:17] LABS: ABG Base Excess 7.8 MMOL/L (-2.5-2.5); ABG HCO3 31.5 MMOL/L (20-26); ABG Oxygen Saturation 97.7 % (95-100); ABG PCO2 50.4 MM HG (35-48); ABG PO2 96.2 MM HG (80-95); ABG TCO2 29.9 MMOL/L (23-27)
[2022-05-30 04:20] LABS: Basophils % 0.2 % (0.0-0.8); Hematocrit 35.5 VOL% (42.0-52.0); Hemoglobin 10.9 GM/DL (14.0-18.0); Immature Granulocytes % 5.1 %; Immature Granulocytes Absolute 0.61 #; Lymphocytes # 0.2 10*3/uL (1.4-4.0); Lymphocytes % 1.7 % (21.2-54.2); Mean Corpuscular HGB Conc 30.7 GM/DL (32-36); Mean Corpuscular Volume 88.3 FL (87-102); Mean Platelet Volume 9.6 FL (9.6-12.0); Monocytes # 0.8 10*3/uL (0.11-0.8); Monocytes % 6.3 % (1.7-12.7); NRBC # 0.02 10*3/uL; Neutrophils % 86.7 % (38.7-73.9); Platelet Count 200 T/CUMM (130-400); Red Blood Count 4.02 MC/CUMM (3.8-5.5); Red Cell Distribution Width 14.6 % (9.3-17.3)
[2022-05-30 04:44] LABS: Calcium 7.8 MG/DL (8.5-10.1); Osmolality,Calculated 304.7 MOS/KG (273-304); Potassium 4.2 MMOL/L (3.5-5.1)
[2022-05-30 04:50] LABS: Hypochromia Slight; Lymphocytes 2 % (20-55); Microcytosis Slight; Nucleated Red Blood Cells 1 /100 WBC (0-5); Platelet Estimate Adequate; Total Cells Counted 100
[2022-05-30 05:03] LABS: Phosphorous 3.1 MG/DL (2.5-4.9)
[2022-05-30] MEDS: MIDAZOLAM 100 MG in SODIUM CHLORIDE 0.9% 80 ML IV PRN ×2 (06:52→20:38)
[2022-05-30] MEDS: BUDESONIDE 0.5 MG/2 ML NEB RESP TX SCH ×2 (07:53→19:02)
[2022-05-30] MEDS ORDERED: FUROSEMIDE 40 MG/4 ML VIAL IV ONE (08:29)
[2022-05-30] MEDS ORDERED: APIXABAN 5 MG TABLET PO SCH (09:00)
[2022-05-30] MEDS ORDERED: INSULIN GLARGINE 100 UNIT/ML SUBCUT SCH (09:00)
[2022-05-30] MEDS: DILTIAZEM 30 MG TABLET PO SCH ×3 (10:09→20:35)
[2022-05-30] MEDS: ALPRAZolam 0.5 MG TABLET PO SCH (10:09)
[2022-05-30] MEDS: cefTRIAXone 1,000 MG in SODIUM CHLORIDE 0.9% 100 ML IV SCH (10:10)
[2022-05-30] MEDS: APIXABAN 5 MG TABLET PO SCH ×2 (10:10→20:35)
[2022-05-30] MEDS: AZITHROMYCIN INJ 500 MG in SODIUM CHLORIDE 0.9% 250 ML IV SCH (10:12)
[2022-05-30] MEDS: AMINOPHYLLINE 500 MG in SODIUM CHLORIDE 0.9% 480 ML IV SCH ×2 (10:30→23:05)
[2022-05-30] MEDS: fentaNYL INJ 1,250 MCG in SODIUM CHLORIDE 0.9% 225 ML IV PRN (11:40)
[2022-05-30] MEDS: SPIRONOLACTONE 25 MG TABLET PO SCH ×2 (13:01→20:35)
[2022-05-30] MEDS: chlordiazePOXIDE 25 MG CAPSULE PO SCH ×2 (14:40→21:00)
[2022-05-30] MEDS ORDERED: LACTULOSE 20 GM/30 ML UDCUP PO PRN (18:25)
[2022-05-30] MEDS ORDERED: LACTULOSE 20 GM/30 ML UDCUP PO ONE (18:25)
[2022-05-30] MEDS: INSULIN GLARGINE 100 UNIT/ML SUBCUT SCH (20:35)
[2022-05-30] MEDS: POLYETHYLENE GLYCOL POWDER 17 GM PACK PO SCH (20:35)
[2022-05-31] MEDS: INSULIN LISPRO 100 UNIT/ML SUBCUT SCH ×5 (00:14→23:26)
[2022-05-31] MEDS: hydrALAZINE 20 MG/1 ML VIAL IV PRN ×2 (00:50→21:42)
[2022-05-31] MEDS: fentaNYL INJ 1,250 MCG in SODIUM CHLORIDE 0.9% 225 ML IV PRN (01:30)
[2022-05-31] MEDS ORDERED: HEPARIN/NACL 0.9% 2 UNITS/ML 1,000 UNIT/500 ML BAG IV ONE (03:09)
[2022-05-31] MEDS: FAMOTIDINE 20 MG/2 ML VIAL IV SCH ×2 (03:20→14:19)
[2022-05-31] MEDS: methylPREDNISolone SOD SUC 125 MG/2 ML VIAL IV SCH ×2 (03:25→08:28)
[2022-05-31 03:41] LABS: Basophils % 0.1 % (0.0-0.8); Hematocrit 38.1 VOL% (42.0-52.0); Immature Granulocytes % 4.3 %; Lymphocytes # 0.2 10*3/uL (1.4-4.0); Lymphocytes % 1.4 % (21.2-54.2); Mean Corpuscular HGB Conc 31.5 GM/DL (32-36); Mean Corpuscular Volume 87.6 FL (87-102); Mean Platelet Volume 9.7 FL (9.6-12.0); Monocytes # 0.5 10*3/uL (0.11-0.8); Monocytes % 4.6 % (1.7-12.7); NRBC # 0.03 10*3/uL; Neutrophils % 89.6 % (38.7-73.9); Platelet Count 214 T/CUMM (130-400); Red Blood Count 4.35 MC/CUMM (3.8-5.5); Red Cell Distribution Width 14.6 % (9.3-17.3); White Blood Count 11.7 T/CUMM (4-12)
[2022-05-31 03:43] LABS: ABG Base Excess 9.1 MMOL/L (-2.5-2.5); ABG HCO3 32.8 MMOL/L (20-26); ABG Oxygen Saturation 98.5 % (95-100); ABG PCO2 51.2 MM HG (35-48); ABG PH 7.441 (7.35-7.45); ABG TCO2 30.8 MMOL/L (23-27)
[2022-05-31] MEDS: LEVALBUTEROL 1.25 MG/3 ML NEB RESP TX SCH ×6 (03:50→23:11)
[2022-05-31 03:55] LABS: Osmolality,Calculated 307.6 MOS/KG (273-304); Potassium 4.2 MMOL/L (3.5-5.1)
[2022-05-31 04:02] LABS: Eosinophils 1 % (0-10); Hypochromia Slight; Lymphocytes 3 % (20-55); Total Cells Counted 100
[2022-05-31 04:03] LABS: Microcytosis Slight
[2022-05-31] MEDS: chlordiazePOXIDE 25 MG CAPSULE PO SCH ×3 (05:12→21:46)
[2022-05-31] MEDS: BUDESONIDE 0.5 MG/2 ML NEB RESP TX SCH ×2 (07:00→19:23)
[2022-05-31] MEDS: DILTIAZEM 30 MG TABLET PO SCH ×3 (08:27→20:31)
[2022-05-31] MEDS: cefTRIAXone 1,000 MG in SODIUM CHLORIDE 0.9% 100 ML IV SCH (08:28)
[2022-05-31] MEDS: APIXABAN 5 MG TABLET PO SCH ×2 (08:28→20:31)
[2022-05-31] MEDS: SPIRONOLACTONE 25 MG TABLET PO SCH (08:28)
[2022-05-31] MEDS: POLYETHYLENE GLYCOL POWDER 17 GM PACK PO SCH (08:28)
[2022-05-31] MEDS: INSULIN GLARGINE 100 UNIT/ML SUBCUT SCH ×2 (08:28→20:28)
[2022-05-31] MEDS: AMINOPHYLLINE 500 MG in SODIUM CHLORIDE 0.9% 480 ML IV SCH ×2 (08:29→19:47)
[2022-05-31] MEDS: AZITHROMYCIN INJ 500 MG in SODIUM CHLORIDE 0.9% 250 ML IV SCH (09:00)
[2022-05-31] MEDS ORDERED: FUROSEMIDE 40 MG/4 ML VIAL IV ONE (09:21)
[2022-05-31] MEDS: methylPREDNISolone SOD SUC 40 MG/1 ML VIAL IV SCH ×3 (09:21→20:26)
[2022-05-31] MEDS: MIDAZOLAM 100 MG in SODIUM CHLORIDE 0.9% 80 ML IV PRN (09:22)
[2022-05-31] MEDS: ACETAMINOPHEN 325 MG/10.15 ML UDCUP PO PRN (17:26)
[2022-05-31] MEDS: MORPHINE 2 MG/1 ML SYRINGE IV PRN (23:50)
[2022-06-01] MEDS: LEVALBUTEROL 1.25 MG/3 ML NEB RESP TX SCH ×6 (03:16→23:04)
[2022-06-01] MEDS: methylPREDNISolone SOD SUC 40 MG/1 ML VIAL IV SCH ×4 (03:34→20:15)
[2022-06-01] MEDS: FAMOTIDINE 20 MG/2 ML VIAL IV SCH ×2 (03:34→15:34)
[2022-06-01 03:51] LABS: ABG Base Excess 11.6 MMOL/L (-2.5-2.5); ABG HCO3 35.4 MMOL/L (20-26); ABG Oxygen Saturation 98.8 % (95-100); ABG PH 7.515 (7.35-7.45); ABG TCO2 31.1 MMOL/L (23-27)
[2022-06-01 04:12] LABS: Calcium 8.5 MG/DL (8.5-10.1); Osmolality,Calculated 312.1 MOS/KG (273-304); Potassium 4.1 MMOL/L (3.5-5.1)
[2022-06-01 04:13] LABS: Basophils % 0.2 % (0.0-0.8); Hematocrit 42.2 VOL% (42.0-52.0); Hemoglobin 13.3 GM/DL (14.0-18.0); Immature Granulocytes % 5.4 %; Immature Granulocytes Absolute 0.73 #; Lymphocytes # 0.2 10*3/uL (1.4-4.0); Lymphocytes % 1.2 % (21.2-54.2); Mean Corpuscular HGB Conc 31.5 GM/DL (32-36); Mean Corpuscular Volume 86.3 FL (87-102); Monocytes % 7.6 % (1.7-12.7); NRBC # 0.02 10*3/uL; Neutrophils % 85.6 % (38.7-73.9); Platelet Count 215 T/CUMM (130-400); Red Blood Count 4.89 MC/CUMM (3.8-5.5); White Blood Count 13.6 T/CUMM (4-12)
[2022-06-01 04:51] LABS: Lymphocytes 10 % (20-55); Platelet Estimate Normal; Total Cells Counted 100
[2022-06-01] MEDS: chlordiazePOXIDE 25 MG CAPSULE PO SCH (06:06)
[2022-06-01] MEDS: INSULIN LISPRO 100 UNIT/ML SUBCUT SCH ×4 (06:06→23:43)
[2022-06-01] MEDS: AMINOPHYLLINE 500 MG in SODIUM CHLORIDE 0.9% 480 ML IV SCH ×3 (06:48→18:33)
[2022-06-01] MEDS: BUDESONIDE 0.5 MG/2 ML NEB RESP TX SCH ×2 (07:14→19:33)
[2022-06-01] MEDS ORDERED: SPIRONOLACTONE 25 MG TABLET PO SCH (09:00)
[2022-06-01] MEDS ORDERED: LORazepam 2 MG/1 ML VIAL IV PRN (09:22)
[2022-06-01] MEDS: APIXABAN 5 MG TABLET PO SCH ×2 (09:56→20:15)
[2022-06-01] MEDS: DILTIAZEM 60 MG TABLET PO SCH ×3 (09:56→20:15)
[2022-06-01] MEDS: chlordiazePOXIDE 25 MG CAPSULE PO PRN ×2 (09:56→23:40)
[2022-06-01] MEDS: POLYETHYLENE GLYCOL POWDER 17 GM PACK PO SCH (09:56)
[2022-06-01] MEDS: cefTRIAXone 1,000 MG in SODIUM CHLORIDE 0.9% 100 ML IV SCH (10:00)
[2022-06-01] MEDS: INSULIN GLARGINE 100 UNIT/ML SUBCUT SCH ×2 (10:09→20:15)
[2022-06-01] MEDS: AZITHROMYCIN INJ 500 MG in SODIUM CHLORIDE 0.9% 250 ML IV SCH (10:21)
[2022-06-01] MEDS: hydrALAZINE 20 MG/1 ML VIAL IV PRN ×2 (11:44→18:48)
[2022-06-01] MEDS ORDERED: LORazepam 1 MG TABLET ONE (12:01)
[2022-06-01] MEDS: LORazepam 1 MG TABLET PO PRN (12:05)
[2022-06-01] MEDS ORDERED: METOPROLOL TARTRATE 5 MG/5 ML VIAL IV ONE (12:31)
[2022-06-01] MEDS: fentaNYL 25 MCG/HR PATCH TRANSDERM SCH (12:40)
[2022-06-01] MEDS: MIDAZOLAM 100 MG in SODIUM CHLORIDE 0.9% 80 ML IV PRN (23:28)
[2022-06-02] MEDS: LEVALBUTEROL 1.25 MG/3 ML NEB RESP TX SCH ×6 (02:52→23:03)
[2022-06-02] MEDS: FAMOTIDINE 20 MG/2 ML VIAL IV SCH ×2 (03:31→14:02)
[2022-06-02] MEDS: methylPREDNISolone SOD SUC 40 MG/1 ML VIAL IV SCH ×2 (03:32→14:02)
[2022-06-02 03:48] LABS: ABG Base Excess 2.4 MMOL/L (-2.5-2.5); ABG HCO3 26.6 MMOL/L (20-26); ABG Oxygen Saturation 98.9 % (95-100); ABG PCO2 39.1 MM HG (35-48); ABG TCO2 23.2 MMOL/L (23-27)
[2022-06-02 03:52] LABS: Basophils % 0.1 % (0.0-0.8); Hematocrit 40.9 VOL% (42.0-52.0); Hemoglobin 12.5 GM/DL (14.0-18.0); Immature Granulocytes % 3.8 %; Immature Granulocytes Absolute 0.27 #; Lymphocytes # 0.1 10*3/uL (1.4-4.0); Lymphocytes % 1.3 % (21.2-54.2); Mean Corpuscular HGB Conc 30.6 GM/DL (32-36); Mean Corpuscular Volume 88.9 FL (87-102); Mean Platelet Volume 10.3 FL (9.6-12.0); Monocytes # 0.8 10*3/uL (0.11-0.8); Monocytes % 10.7 % (1.7-12.7); Neutrophils % 84.1 % (38.7-73.9); Platelet Count 160 T/CUMM (130-400); Red Cell Distribution Width 15.8 % (9.3-17.3); White Blood Count 7.1 T/CUMM (4-12)
[2022-06-02 04:09] LABS: Calcium 8.3 MG/DL (8.5-10.1); Osmolality,Calculated 321.6 MOS/KG (273-304); Potassium 3.7 MMOL/L (3.5-5.1)
[2022-06-02 04:20] LABS: Lymphocytes 2 % (20-55); Total Cells Counted 100
[2022-06-02 04:21] LABS: Platelet Estimate Adequate
[2022-06-02] MEDS: AMINOPHYLLINE 500 MG in SODIUM CHLORIDE 0.9% 480 ML IV SCH ×3 (06:36→18:59)
[2022-06-02] MEDS: INSULIN LISPRO 100 UNIT/ML SUBCUT SCH ×3 (06:49→17:19)
[2022-06-02] MEDS: BUDESONIDE 0.5 MG/2 ML NEB RESP TX SCH ×2 (07:20→18:55)
[2022-06-02] MEDS: MORPHINE 2 MG/1 ML SYRINGE IV PRN (07:40)
[2022-06-02] MEDS: chlordiazePOXIDE 25 MG CAPSULE PO PRN (09:30)
[2022-06-02] MEDS: INSULIN GLARGINE 100 UNIT/ML SUBCUT SCH (09:30)
[2022-06-02] MEDS: POTASSIUM CHLORIDE 20 MEQ TABLET PO PRN (09:30)
[2022-06-02] MEDS: POLYETHYLENE GLYCOL POWDER 17 GM PACK PO SCH (09:30)
[2022-06-02] MEDS: DILTIAZEM 60 MG TABLET PO SCH ×3 (09:30→20:22)
[2022-06-02] MEDS: APIXABAN 5 MG TABLET PO SCH ×2 (09:30→20:21)
[2022-06-02] MEDS: cefTRIAXone 1,000 MG in SODIUM CHLORIDE 0.9% 100 ML IV SCH (09:34)
[2022-06-02 10:44] LABS: ABG Base Excess 2.2 MMOL/L (-2.5-2.5); ABG HCO3 26.4 MMOL/L (20-26); ABG Oxygen Saturation 98.8 % (95-100); ABG PCO2 37.9 MM HG (35-48); ABG PH 7.447 (7.35-7.45); ABG TCO2 22.4 MMOL/L (23-27)
[2022-06-02] MEDS ORDERED: methylPREDNISolone SOD SUC 40 MG/1 ML VIAL ONE (13:57)
[2022-06-02] MEDS: hydrALAZINE 20 MG/1 ML VIAL IV PRN (16:22)
[2022-06-02] MEDS ORDERED: DEXTROSE 50% 25 GM/50 ML SYRINGE IV PRN (17:19)
[2022-06-02] MEDS ORDERED: DEXTROSE 50% 25 GM/50 ML SYRINGE IV ONE (17:20)
[2022-06-03] MEDS: INSULIN LISPRO 100 UNIT/ML SUBCUT SCH ×5 (00:11→19:59)
[2022-06-03] MEDS: FAMOTIDINE 20 MG/2 ML VIAL IV SCH ×2 (02:46→16:30)
[2022-06-03] MEDS: methylPREDNISolone SOD SUC 40 MG/1 ML VIAL IV SCH ×2 (02:56→16:30)
[2022-06-03] MEDS: AMINOPHYLLINE 500 MG in SODIUM CHLORIDE 0.9% 480 ML IV SCH ×2 (03:01→06:27)
[2022-06-03] MEDS: LEVALBUTEROL 1.25 MG/3 ML NEB RESP TX SCH ×4 (03:09→23:39)
[2022-06-03 04:02] LABS: Basophils % 0.2 % (0.0-0.8); Hematocrit 43.9 VOL% (42.0-52.0); Hemoglobin 13.8 GM/DL (14.0-18.0); Immature Granulocytes % 2.1 %; Immature Granulocytes Absolute 0.21 #; Lymphocytes # 0.2 10*3/uL (1.4-4.0); Lymphocytes % 1.8 % (21.2-54.2); Mean Corpuscular HGB Conc 31.4 GM/DL (32-36); Mean Corpuscular Volume 86.2 FL (87-102); Mean Platelet Volume 9.9 FL (9.6-12.0); Monocytes # 1.4 10*3/uL (0.11-0.8); Monocytes % 14.3 % (1.7-12.7); Neutrophils % 81.6 % (38.7-73.9); Platelet Count 145 T/CUMM (130-400); Red Blood Count 5.09 MC/CUMM (3.8-5.5); Red Cell Distribution Width 15.6 % (9.3-17.3)
[2022-06-03] MEDS: MORPHINE 2 MG/1 ML SYRINGE IV PRN (04:16)
[2022-06-03 04:17] LABS: Calcium 8.4 MG/DL (8.5-10.1); Potassium 4.4 MMOL/L (3.5-5.1)
[2022-06-03 04:30] LABS: Arterial Base Excess iSTAT 2 MMOL/L (-2.5-2.5); Arterial Bicarbonate iSTAT 25.1 MMOL/L (20-26); Arterial O2 Saturation iSTAT 98 % (95-100); Arterial PCO2 iSTAT 35 MM HG (35-48); Arterial PO2 iSTAT 106 MM HG (80-95); Arterial Total CO2 iSTAT 26 MMO/L (23-27); Arterial pH iSTAT 7.459 (7.35-7.45)
[2022-06-03 04:31] LABS: Lymphocytes 8 % (20-55); Total Cells Counted 100
[2022-06-03 04:32] LABS: Platelet Estimate Normal
[2022-06-03] MEDS: BUDESONIDE 0.5 MG/2 ML NEB RESP TX SCH ×2 (07:27→19:40)
[2022-06-03] MEDS: THEOPHYLLINE ER (24 HR) 400 MG CAPSULE PO SCH (09:12)
[2022-06-03] MEDS: APIXABAN 5 MG TABLET PO SCH ×2 (09:12→21:25)
[2022-06-03] MEDS: cefTRIAXone 1,000 MG in SODIUM CHLORIDE 0.9% 100 ML IV SCH (09:12)
[2022-06-03] MEDS: DILTIAZEM 60 MG TABLET PO SCH ×3 (09:12→21:25)
[2022-06-03] MEDS ORDERED: ALUMINUM/MAGNES/SIMETH MAX STR 30 ML UDCUP PO PRN (16:50)
[2022-06-03] MEDS: BUDESONIDE/FORMOTEROL 160-4.5 INHALER 6 GM INH SCH ×2 (18:54→21:25)
[2022-06-03] MEDS: LORazepam 1 MG TABLET PO PRN (21:25)
[2022-06-03] MEDS: chlordiazePOXIDE 25 MG CAPSULE PO PRN (23:03)
[2022-06-04] MEDS: FAMOTIDINE 20 MG/2 ML VIAL IV SCH (03:34)
[2022-06-04] MEDS: methylPREDNISolone SOD SUC 40 MG/1 ML VIAL IV SCH ×3 (03:35→21:00)
[2022-06-04 06:34] LABS: Basophils % 0.2 % (0.0-0.8); Hematocrit 47.7 VOL% (42.0-52.0); Hemoglobin 15.6 GM/DL (14.0-18.0); Immature Granulocytes % 1.2 %; Immature Granulocytes Absolute 0.17 #; Lymphocytes # 0.2 10*3/uL (1.4-4.0); Lymphocytes % 1.6 % (21.2-54.2); Mean Corpuscular HGB Conc 32.7 GM/DL (32-36); Mean Corpuscular Volume 83.1 FL (87-102); Mean Platelet Volume 10.5 FL (9.6-12.0); Monocytes # 1.5 10*3/uL (0.11-0.8); Monocytes % 10.7 % (1.7-12.7); Neutrophils % 86.3 % (38.7-73.9); Platelet Count 183 T/CUMM (130-400); Red Blood Count 5.74 MC/CUMM (3.8-5.5); Red Cell Distribution Width 14.8 % (9.3-17.3)
[2022-06-04 06:51] LABS: Calcium 8.5 MG/DL (8.5-10.1); Osmolality,Calculated 284.7 MOS/KG (273-304); Potassium 4.5 MMOL/L (3.5-5.1)
[2022-06-04 06:56] LABS: Lymphocytes 2 % (20-55); Platelet Estimate Adequate; Total Cells Counted 100
[2022-06-04] MEDS: LEVALBUTEROL 1.25 MG/3 ML NEB RESP TX SCH ×3 (07:30→22:27)
[2022-06-04] MEDS: BUDESONIDE 0.5 MG/2 ML NEB RESP TX SCH ×2 (07:30→19:41)
[2022-06-04] MEDS: THEOPHYLLINE ER (24 HR) 400 MG CAPSULE PO SCH (08:59)
[2022-06-04] MEDS: PANTOPRAZOLE 40 MG TABLET PO SCH (09:00)
[2022-06-04] MEDS: APIXABAN 5 MG TABLET PO SCH ×2 (09:00→22:14)
[2022-06-04] MEDS: INSULIN LISPRO 100 UNIT/ML SUBCUT SCH ×4 (09:01→22:13)
[2022-06-04] MEDS: BUDESONIDE/FORMOTEROL 160-4.5 INHALER 6 GM INH SCH (09:02)
[2022-06-04] MEDS: fentaNYL 25 MCG/HR PATCH TRANSDERM SCH (09:02)
[2022-06-04] MEDS: DILTIAZEM 60 MG TABLET PO SCH ×3 (09:04→22:14)
[2022-06-04] MEDS: LORazepam 1 MG TABLET PO PRN (16:40)
[2022-06-04] MEDS: FUROSEMIDE 20 MG/2 ML VIAL IV SCH (16:51)
[2022-06-04] MEDS: chlordiazePOXIDE 25 MG CAPSULE PO PRN (22:14)
[2022-06-05] MEDS: BUDESONIDE/FORMOTEROL 160-4.5 INHALER 6 GM INH SCH ×3 (04:55→20:01)
[2022-06-05 05:40] LABS: Basophils % 0.1 % (0.0-0.8); Hematocrit 41.6 VOL% (42.0-52.0); Hemoglobin 13.8 GM/DL (14.0-18.0); Immature Granulocytes % 0.9 %; Immature Granulocytes Absolute 0.12 #; Lymphocytes # 0.2 10*3/uL (1.4-4.0); Lymphocytes % 1.1 % (21.2-54.2); Mean Corpuscular HGB Conc 33.2 GM/DL (32-36); Mean Corpuscular Volume 83.4 FL (87-102); Mean Platelet Volume 10.6 FL (9.6-12.0); Monocytes # 1.1 10*3/uL (0.11-0.8); Monocytes % 7.9 % (1.7-12.7); Platelet Count 158 T/CUMM (130-400); Red Blood Count 4.99 MC/CUMM (3.8-5.5); Red Cell Distribution Width 14.6 % (9.3-17.3); White Blood Count 13.5 T/CUMM (4-12)
[2022-06-05 05:57] LABS: Calcium 7.9 MG/DL (8.5-10.1); Osmolality,Calculated 291.3 MOS/KG (273-304); Potassium 4.1 MMOL/L (3.5-5.1)
[2022-06-05 06:21] LABS: Hypochromia Slight; Lymphocytes 1 % (20-55); Microcytosis Slight; Platelet Estimate Adequate; Total Cells Counted 100
[2022-06-05] MEDS: LEVALBUTEROL 1.25 MG/3 ML NEB RESP TX SCH ×3 (07:29→22:11)
[2022-06-05] MEDS: BUDESONIDE 0.5 MG/2 ML NEB RESP TX SCH ×2 (07:29→22:11)
[2022-06-05] MEDS: THEOPHYLLINE ER (24 HR) 400 MG CAPSULE PO SCH (08:18)
[2022-06-05] MEDS: DILTIAZEM 60 MG TABLET PO SCH ×3 (08:18→20:00)
[2022-06-05] MEDS: INSULIN LISPRO 100 UNIT/ML SUBCUT SCH ×4 (08:18→20:00)
[2022-06-05] MEDS: PANTOPRAZOLE 40 MG TABLET PO SCH (08:18)
[2022-06-05] MEDS: predniSONE 10 MG TABLET PO SCH ×2 (08:19→20:01)
[2022-06-05] MEDS: APIXABAN 5 MG TABLET PO SCH ×2 (08:19→20:00)
[2022-06-05] MEDS: FUROSEMIDE 20 MG/2 ML VIAL IV SCH ×2 (08:22→16:36)
[2022-06-05] MEDS: ZINC OXIDE PASTE 113 GM TUBE TOP PRN ×2 (08:26→16:36)
[2022-06-05] MEDS: LORazepam 1 MG TABLET PO PRN ×2 (11:30→20:01)
[2022-06-05] MEDS: ACETAMINOPHEN 325 MG/10.15 ML UDCUP PO PRN (17:39)
[2022-06-06] MEDS: LORazepam 1 MG TABLET PO PRN (03:31)
[2022-06-06 03:43] LABS: Basophils % 0.1 % (0.0-0.8); Hematocrit 43.4 VOL% (42.0-52.0); Hemoglobin 14.3 GM/DL (14.0-18.0); Immature Granulocytes Absolute 0.14 #; Lymphocytes # 0.3 10*3/uL (1.4-4.0); Lymphocytes % 2.5 % (21.2-54.2); Mean Corpuscular HGB Conc 32.9 GM/DL (32-36); Mean Corpuscular Volume 84.1 FL (87-102); Mean Platelet Volume 10.5 FL (9.6-12.0); Monocytes # 1.3 10*3/uL (0.11-0.8); Monocytes % 9.5 % (1.7-12.7); Neutrophils % 86.9 % (38.7-73.9); Platelet Count 154 T/CUMM (130-400); Red Blood Count 5.16 MC/CUMM (3.8-5.5); Red Cell Distribution Width 14.7 % (9.3-17.3); White Blood Count 13.9 T/CUMM (4-12)
[2022-06-06 03:57] LABS: Calcium 8.1 MG/DL (8.5-10.1); Osmolality,Calculated 289.4 MOS/KG (273-304); Potassium 3.7 MMOL/L (3.5-5.1)
[2022-06-06 04:00] LABS: Risk Ratio 2.88; VLDL Cholesterol 16.2 MG/DL
[2022-06-06 04:18] LABS: Band Neutrophils 1 % (0-10); Lymphocytes 5 % (20-55); Platelet Estimate Adequate; Total Cells Counted 100
[2022-06-06 04:19] LABS: Hypochromia Slight; Microcytosis Slight
[2022-06-06] MEDS: LEVALBUTEROL 1.25 MG/3 ML NEB RESP TX SCH ×2 (06:59→14:00)
[2022-06-06] MEDS: BUDESONIDE 0.5 MG/2 ML NEB RESP TX SCH (06:59)
[2022-06-06] MEDS: INSULIN LISPRO 100 UNIT/ML SUBCUT SCH ×3 (07:39→16:34)
[2022-06-06] MEDS: FUROSEMIDE 20 MG/2 ML VIAL IV SCH (07:56)
[2022-06-06] MEDS: POTASSIUM CHLORIDE 20 MEQ TABLET PO PRN (07:56)
[2022-06-06] MEDS: PANTOPRAZOLE 40 MG TABLET PO SCH (08:01)
[2022-06-06] MEDS: APIXABAN 5 MG TABLET PO SCH (08:01)
[2022-06-06] MEDS: THEOPHYLLINE ER (24 HR) 400 MG CAPSULE PO SCH (08:01)
[2022-06-06] MEDS: predniSONE 10 MG TABLET PO SCH (08:01)
[2022-06-06] MEDS: DILTIAZEM 60 MG TABLET PO SCH ×2 (08:02→16:34)
[2022-06-06] MEDS: BUDESONIDE/FORMOTEROL 160-4.5 INHALER 6 GM INH SCH (08:02)
[2022-06-06] MEDS: POTASSIUM CHLORIDE 20 MEQ TABLET PO SCH ×3 (08:54→16:34)
[2022-06-06 16:33] VITALS: BP 128/85
== END 2022-06-06 17:16 | DRG 207 ==
LOC: N.ED 12:13 → N.EDINP 14:35 → SUATTDRO 14:35 → N.ICU 16:15 → N.5E 06-06 10:20
PROVIDERS: ADMIT Internal Medicine; ATTEND Internal Medicine